=== PATIENT | female | born 1970 | race Caucasian/White ===

== ENCOUNTER 2017-06-08 14:44 | Emergency (ER) | payer BC, SELFPAY ==
[2017-06-08 14:50] VITALS: BP 108/73; PULSE 85; RESP 18; TEMP 36.8; O2SAT 98; BMI 60.2
[2017-06-08 15:39] LABS: Basophils % 0.1 % (0.1-2.0); Eosinophils # 2.4 K/mm3 (0.0-0.4); Eosinophils % 18.4 % (0.1-12.0); Hematocrit 44.8 % (37.0-47.0); Hemoglobin 14.4 g/dL (12.2-16.2); Lymphocytes # 2.7 K/mm3 (0.7-4.5); Lymphocytes % 20.9 K/mm3 (10-50); Mean Corpuscular HGB Conc 32.2 g/dL (31.8-35.4); Mean Corpuscular Hemoglobin 25.7 pg (27.0-31.2); Mean Corpuscular Volume 79.8 fl (81-99); Mean Platelet Volume 6.9 fl (7.4-10.4); Monocytes # 0.4 K/mm3 (0.1-1.0); Monocytes % 3.4 % (1.7-9.3); Neutrophils # 7.4 K/mm3 (1.8-7.8); Neutrophils % 57.1 % (37.0-80.0); Platelet Count 347 K/mm3 (142-424); Red Blood Count 5.62 M/mm3 (4.20-5.40); Red Cell Distribution Width 15.6 % (11.5-17.5); White Blood Count 12.9 K/mm3 (4.8-10.8)
[2017-06-08 15:51] LABS: Alanine Aminotransferase 15 U/L (12-78); Albumin Level 3.3 gm/dL (3.4-5.0); Albumin/Globulin Ratio 0.8 (1.1-1.8); Alkaline Phosphatase 66 U/L (46-116); Amylase 20 U/L (25-125); Anion Gap 11.6 mEq/L (5-15); Aspartate Amino Transferase 12 U/L (15-37); Bilirubin,Total 0.5 mg/dL (0.2-1.0); Blood Urea Nitrogen 6 mg/dL (7-18); Calcium 8.5 mg/dL (8.5-10.1); Carbon Dioxide 27 mmol/L (21.0-32.0); Chloride 104 mmol/L (98-107); Creatinine Clearance Estimated 81 mL/min (0-300); Creatinine,Serum 0.73 mg/dL (0.55-1.02); Estimated Glomerular Filt Rate 87 ml/min (>60); GFR (African American) 105 ML/MIN (>60); Globulin 4.4 gm/dl (1.3-3.2); Glucose 88 mg/dL (74-106); Lipase 55 u/L (73-393); Potassium 3.6 mmoL/L (3.5-5.1); Sodium 139 mmol/L (136-145); Total Protein,Serum 7.7 gm/dL (6.4-8.2)
--- NOTE | 2017-06-08 17:06 | HMH.EDNVD ---
ED Disposition Clinical Impression: Diarrhea Disposition: Home, Self-Care Condition on Discharge: Good Instructions: DI for Diarrhea and Traveler's Diarrhea -- Adult, DI for Diarrhea and Traveler's Diarrhea -- Child, DI for Nausea -- Adult, DI for Nausea -- Child Additional Instructions: The patient will continue use Gatorade Patient will start on brat diet Patient will follow up on a diarrhea panel with her primary care physician in the morning Start on Flagyl 3 times a day Return if not better. Prescriptions: Dicyclomine HCl [Bentyl] 10 mg PO Q8 #21 capsule metroNIDAZOLE [Flagyl] 500 mg PO Q8 #21 tablet Referrals: Melisa Caal PA [Primary Care Provider] - - Critical Care Critical Care Time: No Attestation: On 06/08/17, the high probability of a clinically significant, sudden or life threatening deterioration of the following system(s) required my full and direct attention, intervention and personal management. The time I documented below is in addition to time spent performing reported procedures but includes the following listed in this critical care notation. Medical Decision Making Vital Signs: 06/08/17 14:50 Temperature 98.2 F Temperature Source Oral Pulse Rate [Right Brachial] 85 Respiratory Rate 18 Blood Pressure [Right Arm] 108/73 Blood Pressure Mean [Right Arm] 84 Blood Pressure Source [Right Arm] Automatic Cuff Blood Pressure Position [Right Arm] Sitting 02 Sat by Pulse Oximetry 98 Oxygen Delivery Method Room Air - Lab Data Lab Results 06/08/17 15:30: WBC 12.9 H, RBC 5.62 H, Hgb 14.4, Hct 44.8, MCV 79.8 L, MCH 25.7 L, MCHC 32.2, RDW 15.6, Plt Count 347, MPV 6.9 L, Neut % (Auto) 57.1, Lymph % (Auto) 20.9, [place] % (Auto) 3.4, Eos % (Auto) 18.4 H, Baso % (Auto) 0.1, Neut # (Auto) 7.4, Lymph # (Auto) 2.7, [place] # (Auto) 0.4, Eos # (Auto) 2.4 H, Baso # (Auto) 0.0 06/08/17 15:30: Sodium 139, Potassium 3.6, Chloride 104, Carbon Dioxide 27, Anion Gap 11.6, BUN 6 L, Creatinine 0.73, Estimated Creat Clear 81, Estimated GFR 87, Est GFR ( Amer) 105, Glucose 88, Calcium 8.5, Total Bilirubin 0.5, AST 12 L, ALT 15, Alkaline Phosphatase 66, Total Protein 7.7, Albumin 3.3 L, Globulin 4.4 H, Albumin/Globulin Ratio 0.8 L, Amylase 20 L, Lipase 55 L Result diagrams: 06/08/17 15:30 06/08/17 15:30 Orders (Tests/Meds): ORDERS Category Date Time Status Diarrhea Panel, PCR Stat Lab 06/08/17 17:04 Ordered - Jaxson Inquiry Pt receiving controlled substance: No Jaxson was queried for this patient: No Medical Decision Making Narrative: I discussed with the patient her near-normal labs, her benign examination, is able to tolerate p.o. intake, explained to her the need for having a diarrhea panel. Nausea/Vomiting/Diarrhea HPI - General Chief complaint: Nausea/Vomiting/Diarrhea Stated complaint: V/D Mode of Arrival: Ambulatory Limitations: No Limitations Description of Symptoms (Recalled from ER Triage Doc. by RN): PT STATES SHE HAS HAD DIARRHEA ON AND OFF SINCE AND IS NOW HAVING NAUSEA AND ABDOMINAL PAIN. PT HAS TAKEN PHENERGAN AND IMODIUM TODAY WITH HER PROBIOTIC. - History of Present Illness HPI Narrative: This a 46 years old white female with no past medical history. 05/21/17 he developed diarrhea and she used Pepto-Bismol and had some black stool. Occasional nausea but no vomiting she continues to complain of abdominal cramps. No fever or chills she has no chest pain no palpitations no shortness of breath. She denies muscle. Able to tolerate Gatorade. She has not seen her primary care physician. complaint: diarrhea Onset (ago): day(s) (18 days) Associated Abdominal Pain: Yes (Crampy) Location of pain: diffuse Exacerbating factors: none - Related Data Previous Rx's Medication Instructions Recorded Dicyclomine HCl [Bentyl] 10 mg PO Q8 #21 capsule 06/08/17 metroNIDAZOLE [Flagyl] 500 mg PO Q8 #21 tablet 06/08/17 Allergies All
--- NOTE | 2017-06-08 17:10 | ED_ITS ---
ED Disposition Clinical Impression: Diarrhea Disposition: Home, Self-Care Condition on Discharge: Good Instructions: DI for Diarrhea and Traveler's Diarrhea -- Adult, DI for Diarrhea and Traveler's Diarrhea -- Child, DI for Nausea -- Adult, DI for Nausea -- Child Additional Instructions: The patient will continue use Gatorade Patient will start on brat diet Patient will follow up on a diarrhea panel with her primary care physician in the morning Start on Flagyl 3 times a day Return if not better. Prescriptions: Dicyclomine HCl [Bentyl] 10 mg PO Q8 #21 capsule metroNIDAZOLE [Flagyl] 500 mg PO Q8 #21 tablet Referrals: Melisa Caal PA [Primary Care Provider] - - Critical Care Critical Care Time: No Attestation: On 06/08/17, the high probability of a clinically significant, sudden or life threatening deterioration of the following system(s) required my full and direct attention, intervention and personal management. The time I documented below is in addition to time spent performing reported procedures but includes the following listed in this critical care notation. Medical Decision Making Vital Signs: 06/08/17 14:50 Temperature 98.2 F Temperature Source Oral Pulse Rate [Right Brachial] 85 Respiratory Rate 18 Blood Pressure [Right Arm] 108/73 Blood Pressure Mean [Right Arm] 84 Blood Pressure Source [Right Arm] Automatic Cuff Blood Pressure Position [Right Arm] Sitting 02 Sat by Pulse Oximetry 98 Oxygen Delivery Method Room Air - Lab Data Lab Results 06/08/17 15:30: WBC 12.9 H, RBC 5.62 H, Hgb 14.4, Hct 44.8, MCV 79.8 L, MCH 25.7 L, MCHC 32.2, RDW 15.6, Plt Count 347, MPV 6.9 L, Neut % (Auto) 57.1, Lymph % (Auto) 20.9, [place] % (Auto) 3.4, Eos % (Auto) 18.4 H, Baso % (Auto) 0.1, Neut # (Auto) 7.4, Lymph # (Auto) 2.7, [place] # (Auto) 0.4, Eos # (Auto) 2.4 H, Baso # (Auto) 0.0 06/08/17 15:30: Sodium 139, Potassium 3.6, Chloride 104, Carbon Dioxide 27, Anion Gap 11.6, BUN 6 L, Creatinine 0.73, Estimated Creat Clear 81, Estimated GFR 87, Est GFR ( Amer) 105, Glucose 88, Calcium 8.5, Total Bilirubin 0.5 , AST 12 L, ALT 15, Alkaline Phosphatase 66, Total Protein 7.7, Albumin 3.3 L, Globulin 4.4 H, Albumin/Globulin Ratio 0.8 L, Amylase 20 L, Lipase 55 L Result diagrams: 06/08/17 15:30 06/08/17 15:30 Orders (Tests/Meds): ORDERS Category Date Time Status Diarrhea Panel, PCR Stat Lab 06/08/17 17:04 Ordered - Jaxson Inquiry Pt receiving controlled substance: No Jaxson was queried for this patient: No Medical Decision Making Narrative: I discussed with the patient her near-normal labs, her benign examination, is able to tolerate p.o. intake, explained to her the need for having a diarrhea panel. Nausea/Vomiting/Diarrhea HPI - General Chief complaint: Nausea/Vomiting/Diarrhea Stated complaint: V/D Mode of Arrival: Ambulatory Limitations: No Limitations Description of Symptoms (Recalled from ER Triage Doc. by RN): PT STATES SHE HAS HAD DIARRHEA ON AND OFF SINCE AND IS NOW HAVING NAUSEA AND ABDOMINAL PAIN. PT HAS TAKEN PHENERGAN AND IMODIUM TODAY WITH HER PROBIOTIC. - History of Present Illness HPI Narrative: This a 46 years old white female with no past medical history. 05/21/17 he developed diarrhea and she used Pepto-Bismol and had some black stool. Occasional nausea but no vomiting she jose
[2017-06-08 17:40] VITALS: BP 130/70; PULSE 74; RESP 16; TEMP 36.9; O2SAT 99
== END 2017-06-08 17:41 | disposition home or self-care (01) ==
PROVIDERS: Emergency Provider Emergency Medicine; PCP Physician Assistant
DX: R19.7 Diarrhea, unspecified (principal); F17.210 Nicotine dependence, cigarettes, uncomplicated
CPT/HCPCS: 80053; 82150; 83690; 85025; 99283

== ENCOUNTER → 2017-06-09 01:19 | Outpatient (CLI) | payer BC, SELFPAY ==
[2017-06-09 03:32] LABS: Adenovirus F 40/41, stool Not Detected (NotDetected); Astrovirus Not Detected (NotDetected); Campylobacter Not Detected (NotDetected); Cryptosporidium Not Detected (NotDetected); Cyclospora Cayetanesis Not Detected (NotDetected); Entamoeba histolytica Not Detected (NotDetected); Enteroaggregative E coli Not Detected (NotDetected); Enteropathogenic E coli Not Detected (NotDetected); Enterotoxigenic E coli Not Detected (NotDetected); Giardia lamblia Not Detected (NotDetected); Norovirus Not Detected (NotDetected); Plesimonas Shigalloides, PCR Not Detected (NotDetected); Rotavirus A Not Detected (NotDetected); Salmonella, PCR Not Detected (NotDetected); Sapovirus Not Detected (NotDetected); Shiga-like toxin E coli Not Detected (NotDetected); Shigella Enterovasive E coli Not Detected (NotDetected); Vibrio Cholerae Not Detected (NotDetected); Vibrio, PCR Not Detected (NotDetected); Yersinia Entercolitica, PCR Not Detected (NotDetected)
[2017-06-09 06:05] LABS: Clostridium Difficile A/B, PCR Detected (NotDetected)
== END ==
PROVIDERS: PCP Nurse Practitioner; Visit Provider Nurse Practitioner
DX: R19.7 Diarrhea, unspecified (principal)
CPT/HCPCS: 87507

== ENCOUNTER 2021-11-15 13:17 | Emergency (ER) | payer MEDICARE, SELFPAY ==
[2021-11-15 13:45] VITALS: BP 156/86; PULSE 81; RESP 19; TEMP 36.7; O2SAT 98; BMI 57.7
--- NOTE | 2021-11-15 14:13 | HMH.EDUTC ---
[facility] [place] Disposition Clinical Impression: Otitis media Qualifiers: Otitis media type: unspecified Laterality: left Qualified Code(s): H66.92 - Otitis media, unspecified, left ear Otitis externa Qualifiers: Otitis externa type: unspecified type Chronicity: unspecified Laterality: left Qualified Code(s): H60.92 - Unspecified otitis externa, left ear Disposition: Home, Self-Care Condition on Discharge: Good Instructions: Vertigo, Middle Ear Infection, DI for Otitis Externa Additional Instructions: Use drops as prescribed Take oral medication as prescribed Follow up with your Family Doctor if no improvement or any worsening of symptoms Return if needed Straight to ER if any life threatening symptoms Make sure to follow up if ear swells worse and you are unable to get drops into ear Prescriptions: Meclizine HCl [Antivert 12.5mg tablet] 12.5 mg PO Q8HP PRN #15 tab PRN Reason: Dizziness Transmission Status: Pending to [facility] Amoxicillin/Potassium Clav [Amox-Clav 875-125 mg Tablet] 1 tab PO BID #20 tab Transmission Status: Pending to [facility] Neomycin/Polymyxin B Sulf/Hc [Lkvpqtys-Exxttegoz-OU Otic Susp 10mL] 4 drp OT Q8H 7 Days #10 ml Transmission Status: Pending to [facility] Referrals: Hector Obrien MD [Primary Care Provider] - As needed Time of Disposition: 14:29 Medical Decision Making - Jaxson Inquiry Pt receiving controlled substance: No Jaxson was queried for this patient: No Vital Signs: 11/15/21 13:45 Temperature 98.1 F Temperature Source Oral Pulse Rate [Right Brachial] 81 Respiratory Rate 19 Blood Pressure [Right Arm] 156/86 H Blood Pressure Mean [Right Arm] 109 Blood Pressure Source [Right Arm] Automatic Cuff Blood Pressure Position [Right Arm] Sitting 02 Sat by Pulse Oximetry 98 Oxygen Delivery Method Room Air [facility] [place] HPI - General Stated complaint: ear pain, dizzy Time Seen by Provider: 11/15/21 14:13 Mode of Arrival: Ambulatory Source of Information: Patient Limitations: No Limitations Description of Symptoms (Recalled from Triage Doc. by RN): PATIENT C/O LEFT EAR PAIN AND SWELLING X 3 DAYS HEENT Symptoms (Recalled from RN notes): Yes Resp Symptoms (Recalled from RN notes): No Skin Symptoms (Recalled from RN notes): No MS Symptoms (Recalled from RN notes): No Functional Status (Recalled from RN notes): WNL - History of Present Illness Provider Complaint: Patient states that she has been having pain in her left ear for several days and feels like it may be swollen States that she feels like when she opens her mouth her ear closes off States that it is making her feel dizzy States that today her ear was hurting worse so she came in - Related Data Previous Rx's Medication Instructions Recorded Amoxicillin/Potassium Clav 1 tab PO BID #20 tab 11/15/21 [Amox-Clav 875-125 mg Tablet] Meclizine HCl [Antivert 12.5mg 12.5 mg PO Q8HP PRN #15 tab 11/15/21 tablet] Neomycin/Polymyxin B Sulf/Hc 4 drp OT Q8H 7 Days #10 ml 11/15/21 [Xlrwyyyg-Ncynoifgr-ZC Otic Susp 10mL] Allergies Allergy/AdvReac Type Severity Reaction Status Date / Time tuberculin, purified protein Allergy Mild Verified 01/01/18 13:13 deriva [TUBERCULIN, PURIFIED PROTEIN DERIVA] TB SERUM Allergy Unknown ITCHING Uncoded 05/16/17 15:31 WHEAT PASTE Allergy Unknown I-RASH Uncoded 05/16/17 15:31 - Worker's Comp Is this a Worker's Comp case?: No [facility] History - Hepatitis A Screen Attestation statement:: This patient has been screened for Hepatitis A risk factors. I have reviewed the patient's past medical history: Yes Medical History: Denies:: Cancer, Diabetes Mellitus Type 1, Diabetes Mellitus Type 2, MRSA Laterality Cases: Right: Arthroscopy Knee Amputation: No - Social History Smoking Status: Current every day smoker Tobacco Type: cigarettes # Packs/Day (cigarettes): 1 Alcohol Intake: never Occupational Status: other ROS Obtained: Yes All systems
[2021-11-15 14:29] VITALS: BP 156/86; PULSE 81; RESP 19; TEMP 36.7; O2SAT 98
== END 2021-11-15 14:37 | disposition home or self-care (01) ==
PROVIDERS: Emergency Provider Nurse Practitioner; PCP Emergency Medicine
DX: H66.92 Otitis media, unspecified, left ear (principal); R42 Dizziness and giddiness; F17.210 Nicotine dependence, cigarettes, uncomplicated; Z79.899 Other long term (current) drug therapy; Z88.7 Allergy status to serum and vaccine; Z91.018 Allergy to other foods
CPT/HCPCS: 99213; G0463

== ENCOUNTER 2024-02-09 13:40 | Outpatient (CLI) | payer MEDICARE, MEDICAID, SELFPAY ==
[2024-02-09 18:59] LABS: Carbon Dioxide 28 mmol/L (22.0-30.0); Chloride 106 mmol/L (98-107); Sodium 139 mmol/L (136-145)
[2024-02-09 19:00] LABS: Alanine Aminotransferase 25 U/L (12-78); Albumin Level 3.9 g/dl (3.5-5.0); Alkaline Phosphatase 74 U/L (38-126); Aspartate Amino Transferase 30 U/L (14-36); Bilirubin,Total 0.5 mg/dl (0.2-1.3); Blood Urea Nitrogen 10 mg/dl (7-17); Calcium 9.1 mg/dl (8.4-10.2); Chol/HDL Ratio 4.8 (1-3.5); Cholesterol 181 mg/dl (140-200); Estimated Glomerular Filt Rate 88 ml/min (>60); GFR (African American) 107 ML/MIN (>60); Globulin 3.8 g/dL (1.3-3.2); Glucose 89 mg/dl (74-100); HDL Cholesterol 38 mg/dl (40-60); Total Protein,Serum 7.7 g/dl (6.3-8.2); Triglycerides 126 mg/dl (30-150); VLDL Cholesterol 25 mg/dL (0-40)
[2024-02-09 19:25] LABS: C-Reactive Protein 27.9 mg/L (0-4); Direct LDL Cholesterol 113.14 mg/dL (100-129)
[2024-02-09 19:29] LABS: Thyroid Stimulating Hormone 2.88 uIU/mL (0.465-4.68)
[2024-02-09 20:36] LABS: 25-OH Vitamin D, Total < 12.8 ng/mL (30-100)
[2024-02-09 20:58] LABS: HIV (1&2) Antibody Rapid NONREACTIVE (NONREACTIVE)
[2024-02-11 10:10] LABS: HCV Ab Non Reactive (Non Reactive)
== END 2024-02-09 23:59 | disposition home or self-care (01) ==
LOC: LAB.DROPOF 02-12 12:39
PROVIDERS: PCP Family Medicine; Visit Provider Family Medicine
DX: E55.9 Vitamin D deficiency, unspecified (principal); R53.83 Other fatigue; Z11.59 Encounter for screening for other viral diseases; E66.9 Obesity, unspecified; M25.50 Pain in unspecified joint; Z68.45 Body mass index [BMI] 70 or greater, adult; Z13.1 Encounter for screening for diabetes mellitus; M25.539 Pain in unspecified wrist
CPT/HCPCS: 80053; 80061; 82306; 84443; 86140; 86803; 87389

== ENCOUNTER 2024-02-23 15:14 | Emergency (ER) | payer MEDICARE, SELFPAY ==
[2024-02-23 15:25] VITALS: BP 164/99; PULSE 74; RESP 20; TEMP 36.8; O2SAT 97; BMI 67.3
--- NOTE | 2024-02-23 15:32 | XR_ITS ---
FINAL REPORT CLINICAL HISTORY: pain COMPARISON: None FINDINGS: LUMBAR SPINE: AP and lateral views of the lumbar spine were obtained. There is no prior exam for comparison. There is no acute fracture or malalignment. Vertebral body height is preserved. There is mild diffuse degenerative disc disease present. There is grade 1 spondylolisthesis of L5 on S1, and moderate facet arthropathy. No acute paraspinal abnormality. IMPRESSION: Mild degenerative change as described, without acute bony abnormality. Reviewed, Interpreted and Dictated by German Devlin MD Transcribed by Kisha Rm Authenticated and [facility]
--- NOTE | 2024-02-23 15:34 | EXP.UTC ---
Discharge Plan Disposition Patient Disposition: Home, Self-Care Condition: Good Prescriptions Prescriptions: New etodolac 200 mg capsule 200 mg PO Q8H PRN (Reason: pain) Qty: 20 0RF lidocaine 4 % adhesive patch,medicated 1 patch topical DAILY PRN (Reason: pain) Qty: 10 0RF Rx Instructions: apply patch leave on for 12 hours then remove for 12 hours cyclobenzaprine 10 mg tablet 10 mg PO TID PRN (Reason: muscle spasm) Qty: 12 0RF No Action aspirin [Adult Aspirin Regimen] 81 mg tablet,delayed release (DR/EC) 81 mg PO DAILY Referrals Follow up/Referrals: Marcela Olivo APRN [Primary Care Provider] - See instructions Activity Restrictions/Add. Instructions Additional Instructions/Restrictions: *Etodolac chanel 8 hours with meal as needed for pain/inflammation *Remember you had a Toradol shot in the clinic today, which is similar to Etodolac so do not start until tomorrow *Not additional anti-inflammatory like Ibuprofen motrin, aleve, advil with the above amount of Etodolac. You can still take Tylenol every 4 hours as needed if you need something else for pain *Ice 20 minutes every 2 hours for the first 48 hours after the initial injury followed by moist heat every 20 minutes 3-4 times a day to affected area *Muscle relaxer every 8 hours as needed for muscle spasms but remember, it WILL cause drowsiness You cannot take it and drive, operate machinery or care for small children. *Keep this area active, no movement leads to more stiffness, However take it easy and avoid heavy lifting pushing or pulling *Follow up with you family doctor if no improvement for further treatment ? Clinical Impressions Clinical Impression: Low back pain Instructions Patient Instructions: DI for Low Back Pain, Low Back Pain Print Language Print Language: Bulgarian Discharge ED Provider: Maricarmen Barrios [facility] [place] General Stated complaint: ao 02/07, back pain Mode of Arrival: Ambulatory Source of Information: Patient Limitations: No Limitations Time Seen by Provider: 02/23/24 15:35 Description of Symptoms (Recalled from Triage Doc. 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 and felt something pull in her lower back area States since then she has been having pain and spasms in her lower back hurts when she moves certain ways or tries to bend States she called her PCP office yesterday and they told her to come to the [facility] to get xrays but she wasnt able to make it yesterday so she came today Denies loss of control of bowel or bladder Related Data Home Medications ?Medication ?Instructions ?Recorded ?Confirmed aspirin 81 mg tablet,delayed 81 mg PO DAILY 02/09/24 02/23/24 release (Adult Aspirin Regimen) Previous Rx's ?Medication ?Instructions ?Recorded cyclobenzaprine 10 mg tablet 10 mg PO TID PRN muscle spasm #12 02/23/24 tabs etodolac 200 mg capsule 200 mg PO Q8H PRN pain #20 caps 02/23/24 lidocaine 4 % topical patch 1 patch topical DAILY PRN pain #10 02/23/24 ea Allergies Allergy/AdvReac Type Severity Reaction Status Date / Time tuberculin, purified protein Allergy Mild Unknown Verified 02/23/24 15:34 deriva allergy [TUBERCULIN, PURIFIED reaction PROTEIN DERIVA] tuberculin,PPD,multi-puncture Allergy Unknown Verified 02/23/24 15:34 allergy reaction wheat Allergy Unknown Verified 02/23/24 15:34 allergy reaction Worker's Comp Is this a Worker's Comp case?: No [facility] Disclaimer: The information contained in this section may have been updated after the patient was seen, as this information can be updated by other users. Medical History (Updated 02/23/24 @ 16:29 by Maricarmen Barrios APRN) Anemia Depression Anxiety Cancer Surgical History (Updated 02/23/24 @ 15:34 by Cris Ferreira RN) History of tubal ligation Social History Smoking Status: Current every day smoker tobacco type: cigarettes packs per day: 1 alcohol intake: never current occupational status: other Travel in the last 8 weeks: None ROS Obtained: Yes All systems reviewed & no additional complaints except as documented and Yes Systems reviewed as appropriate & no additional complaints except as documented Constitutional Constitutional: Reports system reviewed and no additional complaints, except as documented and Reports as per HPI ENT Ears, Nose, Mouth, and Throat: Reports system reviewed and no additional complaints, except as documented and Reports as per HPI Cardiovascular Cardiovascular: Reports system reviewed and no additional complaints, except as documented and Reports as per HPI Respiratory Respiratory: Reports system reviewed and no additional complaints, except as documented and Reports as per HPI Gastrointestinal Gastrointestingal: Reports system reviewed and no additional complaints, except as documented and as per HPI Musculoskeletal Musculoskeletal: Reports system reviewed and no additional complaints, except as documented, Reports as per HPI and Reports back pain Physical Exam General General appearance: alert and in no apparent distress Respiratory Respiratory exam: Present normal lung sounds bilaterally; Absent respiratory distress or wheezes Cardiovascular Cardiovascular exam: Present regular rate, normal rhythm and normal heart sounds Back Exam Back exam: Present tenderness and muscle spasm Back 1 view image: 1. reports tenderness, spasm like pain denies radiation of pain and denies loss of control of bowel or bladder Neurological Exam Neurological exam: Present alert, oriented X3 and normal gait Medical Decision Making Medical Records Screening: Per USPSTF and CDC recommendations, given the prevalence of disease in our region, it is our hospital?s policy to screen for HIV and viral Hepatitis for all patients aged 18 and over and those with ongoing risk factors. Jaxson Inquiry Pt receiving controlled substance: No Jaxson was queried for this patient: No Vital Signs: 02/23/24 15:25 Temperature 98.2 F Temperature Source Oral Pulse Rate [Left Brachial] 74 Respiratory Rate 20 Blood Pressure [Left Arm] 164/99 H Blood Pressure Mean [Left Arm] 120 Blood Pressure Source [Left Arm] Automatic Cuff Blood Pressure Position [Left Arm] Sitting 02 Sat by Pulse Oximetry 97 Oxygen Delivery Method Room Air Orders (Tests/Meds): ORDERS Category Date Time Status Lumbar spine XR 2-3 views [XR lumbar spine 2-3V] Stat Exams 02/23/24 15:32 Ordered Radiology Data #1: Image(s): L-Spine Image Reviewed: Yes I have reviewed radiologist's interpretation IMPRESSION: Mild degenerative change as described, without acute bony abnormality.
[2024-02-23] MEDS: KETOROLAC 60MG/2ML VIAL 60 MG IM (16:30)
[2024-02-23 16:36] VITALS: BP 164/99; PULSE 74; RESP 20; TEMP 36.8; O2SAT 97
== END 2024-02-23 16:42 | disposition home or self-care (01) ==
PROVIDERS: Emergency Provider Nurse Practitioner; PCP Family Medicine
DX: M54.50 Low back pain, unspecified (principal); M62.830 Muscle spasm of back
CPT/HCPCS: 72100; 96372; 99212; 99214; G0463; J1885

== ENCOUNTER 2024-02-27 11:53 | Outpatient (CLI) | payer MEDICARE, MEDICAID, SELFPAY ==
--- NOTE | 2024-02-27 12:09 | XR_ITS ---
FINAL REPORT CLINICAL HISTORY: wrist pain, knot FINDINGS: Right wrist Three views were obtained. There is no acute fracture or dislocation. The joint spaces appear normal. No soft tissue abnormality is identified. IMPRESSION: No acute process. MR could better evaluate for the possibility of a ganglion. Reviewed, Interpreted and Dictated by Bereket Nolen MD Transcribed by Tameka Vera Authenticated and [facility]
[2024-02-27 12:16] LABS: Basophils # 0.1 K/mm3 (0-0.2); Eosinophils # 0.3 K/mm3 (0.0-0.4); Eosinophils % 3.6 % (0.1-12.0); Hematocrit 44.4 % (37.0-47.0); Lymphocytes # 2.1 K/mm3 (0.7-4.5); Lymphocytes % 25.2 % (10-50); Mean Corpuscular HGB Conc 31.6 g/dL (31.8-35.4); Mean Corpuscular Hemoglobin 27.7 pg (27.0-31.2); Mean Corpuscular Volume 87.7 fl (81-99); Monocytes # 0.4 K/mm3 (0.1-1.0); Monocytes % 5.2 % (1.7-9.3); Neutrophils # 5.3 K/mm3 (1.8-7.8); Neutrophils % 64.9 % (37.0-80.0); Platelet Count 309 K/mm3 (142-424); Red Blood Count 5.06 M/mm3 (4.20-5.40); Red Cell Distribution Width 16.3 % (11.5-17.5); White Blood Count 8.2 K/mm3 (4.8-10.8)
[2024-02-27 12:42] LABS: Erythrocyte Sedimentation Rate 41 mm/hr (0-30)
[2024-02-27 12:56] LABS: Hemoglobin A1C 5.6 % (4.0-6.0)
== END 2024-02-27 23:59 | disposition home or self-care (01) ==
LOC: RAD 11:54
PROVIDERS: PCP Family Medicine; Visit Provider Family Medicine
DX: M25.531 Pain in right wrist (principal); M25.50 Pain in unspecified joint; R19.7 Diarrhea, unspecified; Z13.1 Encounter for screening for diabetes mellitus
CPT/HCPCS: 36415; 73110; 83036; 85025; 85651

== ENCOUNTER 2024-03-13 14:55 | Outpatient (CLI) | payer MEDICARE, MEDICAID, SELFPAY | END 2024-03-13 23:59 | disposition home or self-care (01) | LOC: RAD 14:57 | PROVIDERS: PCP Family Medicine; Visit Provider Family Medicine | DX: M25.531 Pain in right wrist (principal) ==